=== PATIENT | male | born 1955 | race Caucasian/White ===

== ENCOUNTER 2018-12-12 18:52 | Inpatient (IN) | payer OTHER ==
[2018-12-12] MEDS ORDERED: traMADol HCl 50 MG TAB PO PRN (19:53)
[2018-12-12] MEDS ORDERED: Morphine 2 MG/ML SYRINGE SLOW IVP PRN (19:53)
[2018-12-12] MEDS ORDERED: Zolpidem Tartrate 5 MG TAB PO PRN (19:53)
[2018-12-12] MEDS ORDERED: cloNIDine 0.1 MG TAB PO PRN (19:53)
[2018-12-12] MEDS ORDERED: Acetaminophen/Codeine 30-300mg Tablet PO PRN (19:53)
[2018-12-12] MEDS ORDERED: Nitroglycerin 0.4 MG TAB (25 Tab Bottle) SL PRN (19:53)
[2018-12-12] MEDS ORDERED: Sodium Chloride 0.9% 1,000 ML IV SCH (20:00)
--- NOTE | 2018-12-12 20:47 | HP ---
CHIEF COMPLAINT: Chest pain. HISTORY OF PRESENT ILLNESS: Mr. Mederos is a very pleasant 63-year-old white gentleman, who comes to the hospital for chest pain. He went to the [place] [facility] close to where he lives and he was found to have inferior ST elevation, so he was transferred over to this facility for further care. He was taken immediately from the ambulance to the molder labels. He was found to have an occluded RCA. This was wired and stented successfully with a drug-eluting stent. He felt immediately better after we had revascularized his artery. He did have a little run of bradycardia and , but this was brief. He felt slightly nauseated and then got better. He is currently chest pain free and doing much better. He has minimal residual disease in the left circulation. He does have a severe ostial diagonal that is not amenable to any catheter based interventions. Currently, he is pain free, doing much better. PAST MEDICAL HISTORY: Type 2 diabetes. OUTPATIENT MEDICATIONS: Include: 1. Glipizide. 2. Metformin. SOCIAL HISTORY: Quit smoking 6 months ago. Social alcohol use. No drug use. FAMILY HISTORY: Uncles with heart disease, but no significant coronary artery disease in close family members. REVIEW OF SYSTEMS: A 12-point review of systems done and was found to be negative unless stated in the history of present illness. PAST SURGICAL HISTORY: Tonsillectomy as a child. PHYSICAL EXAMINATION: VITAL SIGNS: Temperature 98.2, pulse 70, respiratory rate 18, satting 98% on 2 L, blood pressure 138/62. GENERAL: Awake alert oriented x3 in no distress. HEENT: Normocephalic, atraumatic. NECK: Supple. LUNGS: Clear. CARDIOVASCULAR: S1 and S2. No S3 or S4. No murmurs. ABDOMEN: Soft. Positive bowel sounds. EXTREMITIES: No edema. SKIN: Warm and dry. LABORATORY DATA: Pending on this admission. ASSESSMENT AND PLAN: 1. Inferior ST-elevation myocardial infarction, acute. 2. Type 2 diabetes. 3. Coronary artery disease. PLAN: 1. Status post drug-eluting stent to his RCA. 2. Brilinta and aspirin for 1 year, low-dose aspirin 81. 3. High dose statin at 80 mg of atorvastatin daily. 4. We will add low-dose beta-thuan and RAZIA inhibitor. 5. Echocardiogram pending for tomorrow. 6. We will trend troponins. 7. We will do PPI for stress ulcer prophylaxis and subcu Lovenox for DVT prophylaxis. 8. Full code. Job ID: [id number]
[2018-12-12 20:48] LABS: Troponin I 0.228 ng/mL (< 0.028)
[2018-12-12] MEDS ORDERED: Heparin 10,000 UNITS/1 ML VIAL ONE (21:16)
[2018-12-12] MEDS: Atorvastatin Calcium 40 MG TAB PO SCH (21:22)
[2018-12-12] MEDS: TICAGRELOR 90 MG TABLET PO SCH (21:23)
[2018-12-13 02:10] LABS: #Basophils 0.1 thou/uL (0.0-0.2); #Eosinphils 0.1 thou/uL (0.0-0.7); #Lymphocytes 2.4 thou/uL (1.20-3.40); #Monocytes 0.7 thou/uL (0.11-0.59); #Neutrophils 5.8 thou/uL (1.40-6.50); %Basophils 0.6 % (0.0-1.0); %Eosinophils 0.9 % (0.0-10.0); %Lymphocytes 26.8 % (21.0-51.0); %Monocytes 7.5 % (0.0-10.0); %Neutrophils 64.2 % (42.0-75.0); Hemoglobin 14.7 g/dL (14.0-18.0); Mean Corpuscular HGB CONC 33.3 g/dL (32.0-36.0); Mean Corpuscular Volume 90.1 fL (78.0-98.0); Mean Platelet Volume 8.1 fL (7.4-10.4); Platelet Count 196 thou/uL (130-400); RBC Distribution Width 12.1 % (11.5-14.5)
[2018-12-13 02:32] LABS: ALT (SGPT) 13 U/L (8-55); AST (SGOT) 19 U/L (5-34); Albumin 3.7 g/dL (3.4-4.8); Alkaline Phosphatase 44 U/L (40-150); Anion Gap 14 mmol/L (10-20); BUN (Urea Nitrogen) 23 mg/dL (8.4-25.7); Bilirubin, Total 0.4 mg/dL (0.2-1.2); Calc. Creatinine Clearance 186 mL/min (70-130); Calcium 9.1 mg/dL (7.8-10.44); Carbon Dioxide 20 mmol/L (23-31); Chloride 110 mmol/L (98-107); Cholesterol 180 mg/dl (< 200 Desired); Estimated GFR-MDRD Greater than 90; Globulin 2.2 g/dL (2.4-3.5); Glucose 104 mg/dL (80-115); HDL Cholesterol 45 mg/dL (>60 Neg Risk); LDL Cholesterol, Calculated 104 mg/dL; Potassium 3.9 mmol/L (3.5-5.1); Protein, Total 5.9 g/dL (5.8-8.1); Sodium 140 mmol/L (136-145); Triglycerides 156 mg/dL (Less than 150)
[2018-12-13 02:33] LABS: CKMB 12.2 ng/mL (0-6.6)
[2018-12-13 02:49] LABS: Thyroid Stimulating Hormone 2.5927 uIU/mL (0.35-4.94)
[2018-12-13 04:12] LABS: Free T4 (Free Thyroxine) 0.97 ng/dL (0.70-1.48)
[2018-12-13 05:48] VITALS: BMI 35.3
[2018-12-13] MEDS: Enoxaparin Sodium 40 MG/0.4 ML SYRINGE SC SCH (09:23)
[2018-12-13] MEDS: Aspirin Chewable 81 MG TAB PO SCH (09:23)
[2018-12-13] MEDS: Lisinopril 2.5 MG TAB PO SCH (09:24)
[2018-12-13] MEDS: TICAGRELOR 90 MG TABLET PO SCH ×2 (09:25→19:55)
[2018-12-13] MEDS: Carvedilol 3.125 MG TAB PO SCH ×2 (12:44→17:42)
--- NOTE | 2018-12-13 15:44 | PDOC.CTH ---
Cardiology Progress Note - Subjective He is doing well. no chest pain, tightness ,pressure, SOB. He has been walking with PT and on his own and feel great. - Objective Vital Signs Temp Pulse Pulse Pulse BP BP BP 12/13/18 12:00 98.4 F 12/13/18 09:43 52 L 58 L 160/92 H 166/90 H 12/13/18 09:24 49 L 146/86 H 12/13/18 08:00 98.1 F 12/13/18 06:36 12/13/18 04:00 98.0 F Pulse Ox Pulse Ox Pulse Ox 12/13/18 12:00 12/13/18 09:43 96 100 12/13/18 09:24 12/13/18 08:00 97 12/13/18 06:36 94 L 12/13/18 04:00 Weight 260 lb 9.382 oz 12/12/18 12/13/18 12/14/18 06:59 06:59 06:59 Intake Total 1050 360 Output Total 850 280 Balance 200 80 - Physical Examination General/Neuro: alert & oriented x3, NAD Neck: no JVD present Lungs: CTA, unlabored respirations Heart: RRR Abdomen: NT/ND Extremities: other: (no edema) - Telemetry Telemetry Rhythm: NSR, S Sam - Labs Result Diagrams: 12/13/18 01:55 12/13/18 01:55 Troponin/CKMB CK-MB (CK-2) 12.2 ng/mL (0-6.6) H* 12/13/18 01:55 Troponin I 7.310 ng/mL (< 0.028) H* 12/13/18 01:55 - Assessment/Plan 1. Inferior STEMI 2. Type 2 DM PLAN: - Brilinta and ASA 81 mg for one year. - High dose statin - Low dose BB and ACEI - May have to stop BB if HR remains low. - Will transfer to telemetry. - Home tomorrow if stable.
--- NOTE | 2018-12-13 15:45 | CON ---
DATE OF CONSULTATION: 12/13/2018 HISTORY OF PRESENT ILLNESS: Mr. Mederos is a 63-year-old male who drove himself to the emergency room having chest pain. He underwent coronary stenting emergently. He says he feels great now. PAST MEDICAL HISTORY: Remarkable for diabetes, on glipizide and metformin. SOCIAL HISTORY: He was a smoker up until 6 months ago. He is not a drinker. FAMILY HISTORY: He has family history of vascular disease. ALLERGIES: HE REPORTS NO DRUG ALLERGIES. REVIEW OF SYSTEMS: Ten point review of systems completed, otherwise negative. PHYSICAL EXAMINATION: GENERAL: He actually looks healthy, in no distress. VITAL SIGNS: Blood pressure 131/67, heart rate is 55, respiratory rate is 26, oximetry is 95% on room air. HEENT: His pupils are equal. Sclerae are anicteric. NECK: Supple. No lymphadenopathy. LUNGS: Clear. HEART: Regular rhythm, S1 and S2 normal. ABDOMEN: Soft and nontender. EXTREMITIES: Without clubbing, cyanosis, or edema. IMPRESSION AND PLAN: Status post myocardial infarction. Clinically doing well after stent placement. I will be happy to follow with the other physicians while he is in the ICU. This is a 70 minute consult, with greater than 50% of time spent on unit coordinating care. Job ID: [id number] MTDD
[2018-12-13] MEDS ORDERED: metFORMIN XR 500 MG TAB PO SCH (19:30)
[2018-12-13] MEDS: Atorvastatin Calcium 40 MG TAB PO SCH (19:53)
[2018-12-14 05:08] LABS: #Eosinphils 0.2 thou/uL (0.0-0.7); #Monocytes 0.6 thou/uL (0.11-0.59); #Neutrophils 4.9 thou/uL (1.40-6.50); %Basophils 0.6 % (0.0-1.0); %Eosinophils 2.1 % (0.0-10.0); %Lymphocytes 25.8 % (21.0-51.0); %Monocytes 8.1 % (0.0-10.0); %Neutrophils 63.5 % (42.0-75.0); Hemoglobin 14.9 g/dL (14.0-18.0); Mean Corpuscular Hemoglobin 30.3 pg (27.0-31.0); Mean Corpuscular Volume 89.1 fL (78.0-98.0); Mean Platelet Volume 8.5 fL (7.4-10.4); Platelet Count 179 thou/uL (130-400); RBC Distribution Width 12.1 % (11.5-14.5); Red Blood Cell (RBC) Count 4.91 mill/uL (4.70-6.10); White Blood Cell (WBC) Count 7.7 thou/uL (4.8-10.8)
[2018-12-14 05:26] LABS: ALT (SGPT) 13 U/L (8-55); AST (SGOT) 17 U/L (5-34); Albumin 3.6 g/dL (3.4-4.8); Alkaline Phosphatase 44 U/L (40-150); Anion Gap 11 mmol/L (10-20); BUN (Urea Nitrogen) 19 mg/dL (8.4-25.7); Bilirubin, Total 0.7 mg/dL (0.2-1.2); Calc. Creatinine Clearance 169 mL/min (70-130); Calcium 8.9 mg/dL (7.8-10.44); Carbon Dioxide 23 mmol/L (23-31); Chloride 109 mmol/L (98-107); Estimated GFR-MDRD Greater than 90; Globulin 2.1 g/dL (2.4-3.5); Glucose 111 mg/dL (80-115); Potassium 4.1 mmol/L (3.5-5.1); Protein, Total 5.7 g/dL (5.8-8.1); Sodium 139 mmol/L (136-145)
[2018-12-14] MEDS: Carvedilol 3.125 MG TAB PO SCH ×2 (08:33→16:59)
[2018-12-14] MEDS: metFORMIN XR 500 MG TAB PO SCH ×2 (08:33→16:59)
[2018-12-14] MEDS: Aspirin Chewable 81 MG TAB PO SCH (08:33)
[2018-12-14] MEDS: TICAGRELOR 90 MG TABLET PO SCH (08:33)
[2018-12-14] MEDS: Lisinopril 2.5 MG TAB PO SCH (08:33)
[2018-12-14] MEDS: Enoxaparin Sodium 40 MG/0.4 ML SYRINGE SC SCH (08:33)
[2018-12-14] MEDS ORDERED: Pioglitazone HCl 15 MG TAB PO SCH (09:00)
[2018-12-14 12:45] VITALS: BP 108/55; TEMP 98.7
--- NOTE | 2018-12-15 03:55 | DIS ---
DATE OF ADMISSION: 12/12/2018 DATE OF DISCHARGE: 12/14/2018 DISCHARGE DIAGNOSES: 1. Inferior ST elevation myocardial infarction. 2. Placement of Synergy 3.0 x 20 mm stent in the right coronary artery, post dilated to 3.5 mm. 3. Diabetes. 4. Hypercholesterolemia. 5. Former smoker. DISCHARGE MEDICATIONS: 1. Aspirin 81 daily. 2. Nitroglycerin 0.4 mg sublingually p.r.n. 3. Lipitor 80 mg daily. 4. Carvedilol 3.125 mg b.i.d. 5. Lisinopril 2.5 mg daily. 6. Metformin 500 mg b.i.d. 7. Actos 30 mg daily. 8. Ranitidine 75 daily. 9. Brilinta 90 mg b.i.d. DISCHARGE DISPOSITION: Patient will follow up with Dr. Haney [facility] COURSE: Mr. Mederos presented to the emergency room in [place] with an inferior STEMI and was transferred here. He was taken to pit laborer by Dr. Haney and a totally occluded right coronary artery was opened. He was placed on aspirin and Brilinta. LABORATORY DATA: His cholesterol was 180, triglycerides 156, HDL 45, LDL 104. His troponin I peaked at 7.310. He was ambulating long distances in the [facility] and was discharged. Job ID: [id number]
== END 2018-12-14 17:46 | disposition home or self-care (01) | DRG 247 ==
LOC: CCL 18:52 → CCU 19:53 → 2NO 12-13 20:51
PROVIDERS: ADMIT Internal Medicine Cardiovascular Disease; ATTEND Internal Medicine Cardiovascular Disease
PROC: 027034Z Dilation of Coronary Artery, One Artery with Drug-eluting Intraluminal Device, Percutaneous Approach (ICD-10-PCS; principal; 2018-12-12)
PROC: 4A023N7 Measurement of Cardiac Sampling and Pressure, Left Heart, Percutaneous Approach (ICD-10-PCS; 2018-12-12)
PROC: B2111ZZ Fluoroscopy of Multiple Coronary Arteries using Low Osmolar Contrast (ICD-10-PCS; 2018-12-12)
DX: I21.19 ST elevation (STEMI) myocardial infarction involving other coronary artery of inferior wall (principal); I25.10 Atherosclerotic heart disease of native coronary artery without angina pectoris; E11.9 Type 2 diabetes mellitus without complications; E78.00 Pure hypercholesterolemia, unspecified; Z79.84 Long term (current) use of oral hypoglycemic drugs; Z87.891 Personal history of nicotine dependence; Z82.49 Family history of ischemic heart disease and other diseases of the circulatory system
CPT/HCPCS: 36415; 80053; 80061; 82553; 83880; 84439; 84443; 84484; 85025; 85347; 92941; 93005; 93010; 93306; 93458; 93798; C1725; C1760; C1769; C1874; C1887; C9606; J1644; J1650

== ENCOUNTER 2019-03-17 08:29 | Outpatient (CLI) | payer OTHER ==
--- NOTE | 2019-03-17 11:51 | CT ---
Exam: CT angiogram of the chest HISTORY: Recent cardiac echo. Possible aneurysm of the thoracic aorta. COMPARISON: None TECHNIQUE: CT angiogram of the chest is performed in the axial plane. Three-dimensional reformatted i mages are submitted for interpretation FINDINGS: Mediastinum: No mass, lymphadenopathy or hematoma. HEART: Normal size. No significant pericardial fluid. Aorta: The root of the aorta is normal in caliber. The ascending thoracic aorta, aortic arch, descend ing thoracic aorta and upper abdominal aorta have overall upper normal caliber. Ascending thoracic aorta measures 3.9 x 4.0 cm; descending thoracic aorta measures 3.1 x 3.2 cm; the suprarenal abdomina l aorta measures 2.4 x 2.9 cm. Upper solid abdominal viscera: No abnormality enhancement. Trachea and central bronchi: Patent Pleural spaces: No effusion Lung parenchyma: No masses or consolidation Right lung: Solid nodule in the right upper lobe measuring 0.3 x 0.3 cm. There is nodularity involvin g the major fissure likely due to a 0.6 cm subpleural lymph node. Left lung: No masses or consolidation. Small blebs in the fibula is noted. Pneumothorax: None Osseous structures: No lytic or blastic lesions Pulmonary arteries:Adequate contrast opacification of the central pulmonary arteries. No filling defe ct to suggest thromboembolism. IMPRESSION: 1. No evidence of aneurysm with regards to the visualized aorta. The aortic diameter is at the upper limits of normal. 2. 3 mm nodule in the right upper lobe, as described above. Code lung nodule
[2019-03-17] MEDS ORDERED: Iopamidol 370 76% 100 ML VIAL ONE (16:24)
== END 2019-03-17 08:30 | disposition home or self-care (01) ==
LOC: CT 08:29
PROVIDERS: ATTEND Internal Medicine Cardiovascular Disease
DX: I71.2 Thoracic aortic aneurysm, without rupture (principal); R91.1 Solitary pulmonary nodule
CPT/HCPCS: 71275; Q9967

== ENCOUNTER 2019-04-11 09:46 | Outpatient (CLI) | payer OTHER ==
--- NOTE | 2019-04-11 11:36 | RAD ---
PA AND LATERAL CHEST: Date: 04/11/19 HISTORY: Dyspnea. COMPARISON: 12/12/18 study. FINDINGS: Heart size and mediastinum are within normal limits. Lungs are clear of infiltrates. There are arthri tic changes of the spine. IMPRESSION: No active intrathoracic disease. POS: TPC
== END 2019-04-11 09:47 | disposition home or self-care (01) ==
LOC: RAD 09:46
PROVIDERS: ATTEND Internal Medicine
DX: R06.00 Dyspnea, unspecified (principal)
CPT/HCPCS: 71046

== ENCOUNTER 2020-04-28 09:12 | Outpatient (CLI) | payer OTHER ==
--- NOTE | 2020-04-28 09:43 | CT ---
EXAM: CT of the chest without contrast HISTORY: Pulmonary nodules COMPARISON: 03/17/2019 TECHNIQUE: Multiple contiguous axial images were obtained in a CT the chest without contrast. Coronal and sagittal reformats were performed. FINDINGS: HEART: Normal in size without focal cardiac abnormality. Callus cages are seen in the coronary arteri es. MEDIASTINUM: No hilar or mediastinal lymphadenopathy. There are calcified left hilar lymph nodes. Lesa luation of the mediastinum is limited without IV contrast. LUNGS: There is a calcified granuloma in the left lung base. There is a 3 to 4 mm nodule in the right upper lobe on image 59 of 164. There is a triangular-shaped nodular opacity measuring 5 mm in size on image 75 of 164 along the minor fissure which may represent an intrafissural lymph node. PLEURAL SPACE: No pneumothorax or pleural effusion. CHEST WALL SOFT TISSUES: Unremarkable OSSEOUS STRUCTURES: Degenerative changes in the spine. VISUALIZED SUBDIAPHRAGMATIC STRUCTURES: Calcified granulomas in the spleen. An exophytic hypodensity emanating from the right kidney likely represents a cyst. IMPRESSION: Stable pulmonary nodules
== END 2020-04-28 09:13 | disposition home or self-care (01) ==
LOC: BICCT 09:12
PROVIDERS: ATTEND Internal Medicine Critical Care Medicine
DX: R91.8 Other nonspecific abnormal finding of lung field (principal)
CPT/HCPCS: 71250

== ENCOUNTER 2023-07-27 07:20 | Outpatient (CLI) | payer MEDICARE | END 2023-07-27 07:21 | disposition home or self-care (01) | LOC: CT 07:20 | PROVIDERS: ATTEND Internal Medicine Cardiovascular Disease | DX: R91.1 Solitary pulmonary nodule (principal) | CPT/HCPCS: 71250 ==